=== PATIENT | male | born 1945 | race Caucasian/White ===

== ENCOUNTER 2021-03-03 08:23 | Emergency (ER) | payer MEDICARE, BC, SELFPAY ==
[2021-03-03] VITALS (12 sets, daily range): BP systolic 120–188; BP diastolic 62–96; PULSE 60–84; RESP 12–20; TEMP 36.6–37.7; O2SAT 95–100; BMI 26.4
--- NOTE | 2021-03-03 08:23 | ECG_ITS ---
APPROVED REPORT Exam: Resting ECG HR:69 bpm ECG Measurements Heart Rate 69 AXES [place] 150 P 58 QRSd 142 QRS -90 QT 438 T 33 QTc 469 Conclusion Normal sinus rhythm Left axis deviation Right bundle branch block Abnormal ECG Electronically signed by : Vince Brizuela MD 03/04/2021 09:13:07
--- NOTE | 2021-03-03 08:34 | XR_ITS ---
PROCEDURE: XR CHEST PORTABLE CLINICAL HISTORY: dyspnea COMPARISON: No exams were available for comparison FINDINGS: The cardiomediastinal silhouette and pulmonary vascularity are within normal limits. The lungs are clear without infiltrates, suspicious nodules, or pleural effusions. There is calcified granuloma in the right lower lobe. No acute bony findings. IMPRESSION: No acute findings. Dictated by: Jovani Ireland MD 03/03/2021 10:42 Jovani Ireland MD in [place] 03/03/2021 10:42
--- NOTE | 2021-03-03 08:34 | CT_ITS ---
PROCEDURE: CT ABDOMEN PELVIS W CON CLINICAL INDICATION: Sudden, severe L lumbar back pain COMPARISON: No exams were available for comparison TECHNIQUE: IV Contrast: 75ML Isovue 370 Oral Contrast None Axial images obtained with sagittal and coronal reformats. All CT scans at the facility use one or more dose reduction, viz: automated exposure control, ma/kV adjustment per patient size (including targeted exams where dose is matched to indication, i.e. head), or iterative reconstruction technique. FINDINGS: LOWER THORAX: There are mild atelectatic or fibrotic changes in the lower lobes posteriorly. Subpleural opacity is present in the left lung base laterally at 6 mm nonspecific. Coronary artery calcifications. ABDOMEN & PELVIS: The liver, spleen, adrenal glands, and pancreas have an unremarkable appearance. There are scattered clips in the right abdominal region. Small clip is noted anterior to the pancreas. No radiopaque gallstones evident. There is a 5 mm stone in the lower pole of the left kidney. 2 mm stone is present in the upper pole of the left kidney. There is mild left ureteral dilatation but no obstructing stone apparent. There is mild gastric distension partially fill within digested debris. Status post hemicolectomy on the right with what appears to represent and into site anastomosis of the small bowel. Fluid-filled loops of small bowel are present in the mid and distal ileal region with some enhancement of the mucosa with mild thickening of the small bowel in the right lower quadrant versus nondistention no evidence of diverticulitis. No pelvic mass or abnormal fluid collection. No acute bony findings. There is prominence of the transverse process at L5 with articulation with the sacrum. Small sclerotic foci are present in the pelvis may be due to bone islands. IMPRESSION: 1. Left nephrolithiasis. Mild left ureteral dilatation but no obvious obstructing stone. Recently passed stone would be a consideration. 2. Status post right hemicolectomy with an into site anastomosis of the small bowel with fluid-filled nondistended right colon with a few scattered air-fluid levels and some fluid-filled ilium. There is a small area of small-bowel wall thickening of the ileum in the right lower quadrant versus nondistention. Enterocolitis is a consideration. Please correlate clinically. Dictated by: Jovani Ireland MD 03/03/2021 10:13 Jovani Ireland MD in [facility] 03/03/2021 10:13
--- NOTE | 2021-03-03 08:58 | [facility].EDGENADL ---
ED Disposition Clinical Impression: Left nephrolithiasis Disposition: Home, Self-Care Condition on Discharge: Good Instructions: DI for Low Back Pain Additional Instructions: These continue supportive care at home including ibuprofen, Tylenol and drink plenty of fluids. If your condition worsens or any other concerns arise, please return to the emergency department for reassessment. Otherwise, please see your primary care doctor for follow-up as needed. Referrals: Osvaldo Flower [Primary Care Provider] - - Critical Care Critical Care Time: No Attestation: On 03/03/21, the high probability of a clinically significant, sudden or life threatening deterioration of the following system(s) required my full and direct attention, intervention and personal management. The time I documented below is in addition to time spent performing reported procedures but includes the following listed in this critical care notation. Medical Decision Making - Medical Records Medical records reviewed: Yes: I reviewed the patient's medical records. - Candelario Inquiry Pt receiving controlled substance: No Vital Signs: 03/03/21 08:37 03/03/21 09:18 03/03/21 09:30 Temperature 100 F H Temperature Source Oral Pulse Rate 73 67 Pulse Rate [Right Radial] 72 Respiratory Rate 20 19 14 Blood Pressure 147/69 H 139/69 Blood Pressure [Right Arm] 188/96 H Blood Pressure Mean 83 84 Blood Pressure Mean [Right Arm] 126 Blood Pressure Source [Right Arm] Automatic Cuff Blood Pressure Position [Right Arm] Supine 02 Sat by Pulse Oximetry 100 98 97 Oxygen Delivery Method Room Air 03/03/21 10:00 03/03/21 10:30 03/03/21 11:00 Temperature Temperature Source Pulse Rate 84 69 69 Pulse Rate [Right Radial] Respiratory Rate 13 18 16 Blood Pressure 151/76 H 154/82 H 156/70 H Blood Pressure [Right Arm] Blood Pressure Mean 94 94 98 Blood Pressure Mean [Right Arm] Blood Pressure Source [Right Arm] Blood Pressure Position [Right Arm] 02 Sat by Pulse Oximetry 99 98 95 Oxygen Delivery Method 03/03/21 11:30 03/03/21 12:30 Temperature Temperature Source Pulse Rate 72 66 Pulse Rate [Right Radial] Respiratory Rate 14 14 Blood Pressure 133/66 128/62 Blood Pressure [Right Arm] Blood Pressure Mean 88 94 Blood Pressure Mean [Right Arm] Blood Pressure Source [Right Arm] Blood Pressure Position [Right Arm] 02 Sat by Pulse Oximetry 97 97 Oxygen Delivery Method - Lab Data Lab Results 03/03/21 09:10: WBC 5.0, RBC 5.12, Hgb 15.8, Hct 49.9, MCV 97.5 H, MCH 30.9, MCHC 31.7 L, RDW 13.4, Plt Count 169, MPV 8.3, Neut % (Auto) 78.6, Lymph % (Auto) 11.8, [place] % (Auto) 5.2, Eos % (Auto) 3.9, Baso % (Auto) 0.5, Neut # (Auto) 3.9, Lymph # (Auto) 0.6 L, [place] # (Auto) 0.3, Eos # (Auto) 0.2, Baso # (Auto) 0.0 03/03/21 09:10: D-Dimer 0.61 H 03/03/21 09:10: Sodium 143, Potassium 4.2, Chloride 112 H, Carbon Dioxide 20 L, Anion Gap 15.2 H, BUN 15, Creatinine 0.70, Estimated Creat Clear 82, Estimated GFR 111, Est GFR ( Amer) 134, Glucose 243 H, Calcium 9.2, Total Bilirubin 0.4, AST 28, ALT 31, Alkaline Phosphatase 87, Troponin I < 0.01, Total Protein 6.3, Albumin 4.0, Globulin 2.3, Albumin/Globulin Ratio 1.7 03/03/21 10:32: Urine Color Yellow, Urine Appearance Clear, Urine pH 5.5, Ur Specific [place] 1.015, Urine Protein Negative, Urine Glucose (UA) 3+, Urine Ketones Trace, Urine Blood 3+, Urine Nitrate Negative, Urine Bilirubin Negative, Urine Urobilinogen 0.2, Ur Leukocyte Esterase Negative, Urine RBC 20-50, Urine WBC Occasional, Ur Squamous Epith Cells Occasional, Urine Bacteria 1+ 03/03/21 12:00: Troponin I < 0.01 Result diagrams: 03/03/21 09:10 03/03/21 09:10 Orders (Tests/Meds): ED MEDICATIONS Discontinued Medications Generic Name Dose Route Start Last Admin Trade Name Freq PRN Reason Stop Dose Admin Lactated Ringer's 1,000 mls @ 999 mls/hr 03/03/21 11:30 03/03/21 11:45 Lactated Ringer's
[2021-03-03 09:20] LABS: Basophils % 0.5 % (0.1-2.0); Eosinophils # 0.2 K/mm3 (0.0-0.4); Eosinophils % 3.9 % (0.1-12.0); Hematocrit 49.9 % (42.0-52.0); Hemoglobin 15.8 g/dL (14.1-18.0); Lymphocytes # 0.6 K/mm3 (0.7-4.5); Lymphocytes % 11.8 % (10-50); Mean Corpuscular HGB Conc 31.7 g/dL (31.8-35.4); Mean Corpuscular Hemoglobin 30.9 pg (27.0-31.2); Mean Corpuscular Volume 97.5 fl (80-94); Mean Platelet Volume 8.3 fl (7.4-10.4); Monocytes # 0.3 K/mm3 (0.1-1.0); Monocytes % 5.2 % (1.7-9.3); Neutrophils # 3.9 K/mm3 (1.8-7.8); Neutrophils % 78.6 % (37.0-80.0); Platelet Count 169 K/mm3 (142-424); Red Blood Count 5.12 M/mm3 (4.60-6.20); Red Cell Distribution Width 13.4 % (11.5-17.5)
[2021-03-03 09:24] LABS: Chloride 112 mmol/L (98-107); Potassium 4.2 mmoL/L (3.5-5.1); Sodium 143 mmol/L (136-145)
[2021-03-03 09:26] LABS: Blood Urea Nitrogen 15 mg/dl (9-20); Creatinine Clearance Estimated 82 mL/min (50-200); Estimated Glomerular Filt Rate 111 ml/min (>60); GFR (African American) 134 ML/MIN (>60)
[2021-03-03 09:27] LABS: Alanine Aminotransferase 31 U/L (12-78); Albumin/Globulin Ratio 1.7 (1.1-1.8); Alkaline Phosphatase 87 U/L (38-126); Anion Gap 15.2 mEq/L (5-15); Aspartate Amino Transferase 28 U/L (17-59); Bilirubin,Total 0.4 mg/dl (0.2-1.3); Calcium 9.2 mg/dl (8.4-10.2); Carbon Dioxide 20 mmol/L (22.0-30.0); Globulin 2.3 g/dL (1.3-3.2); Glucose 243 mg/dl (74-100); Total Protein,Serum 6.3 g/dl (6.3-8.2)
[2021-03-03 09:32] LABS: D-Dimer 0.61 ug/mL (0.0-0.5)
[2021-03-03 09:41] LABS: Troponin I < 0.01 ng/ml (0.00-0.034)
[2021-03-03 10:45] LABS: Microscopic, Urine URINE MICROSCOPIC (MICROSCOPIC)
--- NOTE | 2021-03-03 10:49 | PC.NURSE ---
Pt is resting comfortably in supine position with eyes closed. Will continue to monitor.
[2021-03-03 10:58] LABS: Appearance,Urine CLEAR (Clear); Bilirubin,Urine Negative (Negative); Blood, Urine 3+ (Negative); Color,Urine YELLOW (Yellow); Glucose,Urine (UA) 3+ (Negative); Ketones,Urine TRACE (Negative); Leukocyte Esterase,Urine Negative (Negative); Nitrate,Urine Negative (Negative); PH,Urine 5.5 (5.0-8.5); Protein,Urine Negative (Negative); Specific Gravity, Urine 1.015 (1.005-1.030); Urobilinogen,Urine 0.2 EU/dl (0.2)
[2021-03-03 11:01] LABS: Bacteria,Urine 1+ /lpf; RBC,Urine 20-50 #/hpf (0-3); Squamous Epithelial Cell,Urine Occasional #/hpf (0-5); WBC,Urine Occasional #/hpf (0-3)
[2021-03-03 12:48] LABS: Troponin I < 0.01 ng/ml (0.00-0.034)
--- NOTE | 2021-03-03 13:30 | PC.NURSE ---
Pt is resting in bed comfortably. Will continue to monitor.
== END 2021-03-03 14:32 | disposition home or self-care (01) ==
PROVIDERS: Emergency Provider Emergency Medicine; PCP Family Medicine
DX: N20.0 Calculus of kidney (principal); E10.65 Type 1 diabetes mellitus with hyperglycemia
CPT/HCPCS: 36415; 71045; 74177; 80053; 81001; 84484; 85025; 85378; 93005; 93041; 96365; 96375; 99284; J2405; Q9967

== ENCOUNTER 2021-04-01 20:49 | Emergency (ER) | payer MEDICARE, BC, SELFPAY ==
[2021-04-01 20:59] VITALS: BP 184/96; PULSE 85; RESP 18; TEMP 36.1; O2SAT 99; BMI 26.5
--- NOTE | 2021-04-01 21:08 | XR_ITS ---
PROCEDURE INFORMATION: Exam: XR Chest Exam date and time: 04/01/2021 9:08 PM Age: 75 years old Clinical indication: Injury or trauma; Fall; Blunt trauma (contusions or hematomas); Injury date: 04/01/2021; Injury details: [facility] protocols TECHNIQUE: Imaging protocol: XR of the chest. Views: 1 view. COMPARISON: CR XR CHEST PORTABLE 03/03/2021 9:50 AM FINDINGS: Lungs: Unremarkable. No consolidation. Pleural spaces: Unremarkable. No pleural effusion. No pneumothorax. Heart/Mediastinum: Unremarkable. No cardiomegaly. Bones/joints: Unremarkable. IMPRESSION: No acute findings.
--- NOTE | 2021-04-01 21:08 | CT_ITS ---
PROCEDURE INFORMATION: Exam: CT Head Without Contrast Exam date and time: 04/01/2021 9:08 PM Age: 75 years old Clinical indication: Injury or trauma; Fall; Blunt trauma (contusions or hematomas); Without loss of consciousness; Injury date: 04/01/2021; Injury details: Fell off step ladder and hit top of head , laceration and swelling at site TECHNIQUE: Imaging protocol: Computed tomography of the head without contrast. Total images: 292 Radiation optimization: All CT scans at this facility use at least one of these dose optimization techniques: automated exposure control; mA and/or kV adjustment per patient size (includes targeted exams where dose is matched to clinical indication); or iterative reconstruction. COMPARISON: No relevant prior studies available. FINDINGS: Brain: Moderate generalized atrophy. Minimal bilateral white matter hypodensities which are nonspecific but most commonly associated with chronic microvascular ischemia in this age group. No extra-axial fluid collections. Mild prominence of the peripheral CSF spaces, felt to be related to generalized atrophy. No evidence of acute intracranial hemorrhage. Moya-white differentiation is well maintained. No CT evidence of large territory acute or subacute intracranial ischemia/infarct. No intracranial mass lesions. No midline shift or herniation. Cerebral ventricles: Ventricles normal. Paranasal sinuses: Small mucous retention cyst or polyp in the inferomedial right frontal sinus suggesting mild chronic sinus inflammatory disease. No fluid levels. The other paranasal sinuses are clear. Mastoid air cells: Visualized mastoid air cells are clear. Orbital cavity: Visualized orbital contents demonstrate no acute abnormality. Vasculature: Mild-moderate calcific atherosclerosis. No asymmetric vascular hyperdensities suggestive of thrombosis are identified. Bones/joints: The calvarium and visualized facial bones are intact. Soft tissues: High midline occipital scalp soft tissue swelling with no underlying fracture or foreign body. Other findings: The IACs are grossly normal. The sella is grossly normal. IMPRESSION: 1. No acute intracranial process. No intracranial hemorrhage or mass effect. 2. High midline occipital scalp soft tissue swelling with no underlying fracture or foreign body. 3. Atrophy and chronic microvascular changes consistent with age. 4. Mild-moderate calcific atherosclerosis.
--- NOTE | 2021-04-01 21:08 | CT_ITS ---
PROCEDURE INFORMATION: Exam: CT Cervical Spine Without Contrast Exam date and time: 04/01/2021 9:08 PM Age: 75 years old Clinical indication: Injury or trauma; Fall; Blunt trauma; Injury date: 04/01/2021; Injury details: Fell off step ladder and hit top of head, laceration and swelling noted TECHNIQUE: Imaging protocol: Computed tomography images of the cervical spine without contrast. Total images: 616 Radiation optimization: All CT scans at this facility use at least one of these dose optimization techniques: automated exposure control; mA and/or kV adjustment per patient size (includes targeted exams where dose is matched to clinical indication); or iterative reconstruction. COMPARISON: CT HEAD/BRAIN WO CON 04/01/2021 9:47 PM FINDINGS: Bones/joints: Osteopenia. Craniocervical alignment is normal. The odontoid is intact. No cervical spine fractures are identified. There is slight superior endplate compression of T2 with no evidence of significant paraspinous edema or hematoma although cannot exclude mild acute compression injury. Straightening of cervical lordosis which may be positional or related to an element of muscular strain/spasm. 2 mm degenerative anterolisthesis C7-T1 and 1 mm degenerative anterolisthesis C4-C5. No blastic or lytic lesions. Discs/Spinal canal/Neural foramina: The occipital condyles are intact. Moderate-severe degenerative sclerosis and spurring at the atlantodens interval. No jumped or perched facets. Moderate right-sided facet hypertrophic change C2-C3 and C4-C5, with facet ankylosis at C3-C4. Moderate left-sided facet hypertrophic change C4-C5 and C7-T1. Moderate disc space narrowing with mild marginal spurring C5-C6 and C6-C7. Posterior uncovertebral spurring bilaterally C3-C4 and C4-C5 as well. No compressive soft disc protrusion or extrusion is evident by CT. Mild-moderate central canal stenosis at C3-C4 and C5-C6, with mild central canal stenosis at C4-C5 and C6-C7. There is left foraminal stenosis which is mild at C2-C3, moderate-severe at C3-C4, moderate C4-C5, moderate-severe at C5-C6, and moderate at C6-C7. There is right foraminal stenosis which is moderate-severe at C3-C4, mild at C4-C5, moderate-severe at C5-C6, and moderate-severe at C6-C7. Thyroid: The visualized thyroid gland is unremarkable. Lungs: Granulomatous calcifications in the posterior pulmonary apices bilaterally. Soft tissues: Paraspinous soft tissues are unremarkable without significant soft tissue swelling or soft tissue hematoma. IMPRESSION: 1. No evidence of fracture or acute traumatic subluxation. 2. Straightening of cervical lordosis which may be positional or related to an element of muscular strain/spasm. 3. Osteopenia and degenerative changes as detailed above with multilevel canal and foraminal stenosis.
--- NOTE | 2021-04-01 21:08 | XR_ITS ---
PROCEDURE INFORMATION: Exam: XR Pelvis Exam date and time: 04/01/2021 9:08 PM Age: 75 years old Clinical indication: Injury or trauma; Fall; Blunt trauma (contusions or hematomas); Bilateral; Pelvic region; Injury date: 04/01/2021; Injury details: Fell off step ladder trauma protocols TECHNIQUE: Imaging protocol: XR pelvis. Views: 1 or 2 view. COMPARISON: CT ABDOMEN PELVIS W CON 03/03/2021 9:39 AM FINDINGS: Bones/joints: Moderate degenerative changes of the hips. Mild degenerative change of the lower lumbar spine. No acute fracture. Soft tissues: Postsurgical changes right flank. No overlying soft tissue swelling. IMPRESSION: No acute findings.
--- NOTE | 2021-04-01 23:19 | [facility].EDFALL ---
ED Disposition Clinical Impression: Concussion without loss of consciousness Qualifiers: Encounter type: initial encounter Qualified Code(s): S06.0X0A - Concussion without loss of consciousness, initial encounter Acute cervical myofascial strain Qualifiers: Encounter type: initial encounter Qualified Code(s): S16.1XXA - Strain of muscle, fascia and tendon at neck level, initial encounter Abrasion of scalp Qualifiers: Encounter type: initial encounter Qualified Code(s): S00.01XA - Abrasion of scalp, initial encounter Disposition: Home, Self-Care Condition on Discharge: Good Instructions: DI for Concussion Additional Instructions: recheck if any problems Referrals: Osvaldo Flower [Primary Care Provider] - - Critical Care Critical Care Time: No Attestation: On 04/01/21, the high probability of a clinically significant, sudden or life threatening deterioration of the following system(s) required my full and direct attention, intervention and personal management. The time I documented below is in addition to time spent performing reported procedures but includes the following listed in this critical care notation. Medical Decision Making - Medical Records Medical records reviewed: Yes: I reviewed the patient's medical records. - Candelario Inquiry Pt receiving controlled substance: No Vital Signs: 04/01/21 20:59 Temperature 97.0 F L Temperature Source Oral Pulse Rate [Right Brachial] 85 Respiratory Rate 18 Blood Pressure [Right Arm] 184/96 H Blood Pressure Mean [Right Arm] 125 Blood Pressure Source [Right Arm] Automatic Cuff Blood Pressure Position [Right Arm] Sitting 02 Sat by Pulse Oximetry 99 Oxygen Delivery Method Room Air - Radiology Data #1 Image(s): Chest, Pelvis Image Reviewed: Yes I have reviewed radiologist's interpretation Preliminary Findings: No Fracture Seen - CT Data CT Scan: Head, C-Spine Time Received: 23:[address] Reviewed: Yes: I have viewed the radiologist's interpretation Preliminary Findings: Abnormal (see report), No Fracture Seen Medical Decision Narrative: has fall but no fx and stable exam - Fall HPI - General Chief Complaint: Fall Stated Complaint: AO 04/01@2030 hit head lac Time Seen by Provider: 04/01/21 21:30 Mode of Arrival: Family Vehicle Source of Information: Patient, Medical Record Limitations: No Limitations Description of Symptoms (Recalled from ER Triage Doc. by RN): pt states he was in the process of spraying peppermint extract in his vents on his porch (to deter mice) when the 2 step stepladder he was on folded up on him and caused him to fall. pt complains that he landed on his head, and that his head and neck are sore, but otherwise feels ok. pt further denies LOC. slight nausea upon arrival to hospital. no visual changes, no weakness/tingling/alteration in sensation. no loss of bowel or bladder noted. pt admits to being on aspirin but denies other anticoags/antiplatelets. - History of Present Illness HPI Narrative: fell off ladder and hit head w/o loc - has neck pain and no neuro sx MD complaint: fall Onset (ago): hour(s) Fall from: from height (distance) (2 foot) Fall witnessed: no Place fall occurred: home Loss of consciousness: none Prolonged down time: no Symptoms prior to fall: none Context: tripped/slipped Location of injury: head, neck Severity: moderate Associated symptoms (after fall): denies - Related Data Home Medications Medication Instructions Recorded Confirmed Aspirin [Aspirin 81mg chewable 81 mg PO DAILY 04/01/21 04/01/21 tab] Cinnamon Bark/Chromium Picolin 1 each PO DAILY 04/01/21 04/01/21 [Cinnamon Plus Chromium Capsule] Glimepiride 4 mg PO BID 04/01/21 04/01/21 Lansoprazole 30 mg PO DAILY 04/01/21 04/01/21 Linagliptin [Tradjenta 5mg tablet] 5 mg PO DAILY 04/01/21 04/01/21 Metformin HCl [Metformin 1000mg 1,000 mg PO BID 04/01/21 04/01/21 Tablets] Pioglitazone HCl 30 mg PO DAILY 04/01/21
[2021-04-01 23:30] VITALS: BP 174/89; PULSE 79; RESP 17; TEMP 36.8; O2SAT 98
== END 2021-04-01 23:57 | disposition home or self-care (01) ==
PROVIDERS: Emergency Provider Emergency Medicine; PCP Family Medicine
DX: S06.0X0A Concussion without loss of consciousness, initial encounter (principal); S16.1XXA Strain of muscle, fascia and tendon at neck level, initial encounter; W01.0XXA Fall on same level from slipping, tripping and stumbling without subsequent striking against object, initial encounter; E10.9 Type 1 diabetes mellitus without complications
CPT/HCPCS: 70450; 71045; 72125; 72170; 99282

== ENCOUNTER 2023-01-26 06:35 | Emergency (ER) | payer MEDICARE, BC, SELFPAY ==
[2023-01-26 06:36] VITALS: BP 166/88; PULSE 74; RESP 16; TEMP 36.6; O2SAT 99; BMI 24.4
--- NOTE | 2023-01-26 06:49 | CT_ITS ---
PROCEDURE INFORMATION: Exam: CT Abdomen And Pelvis With Contrast Exam date and time: 01/26/2023 7:32 AM Age: 77 years old Clinical indication: Abdominal pain; Generalized; Additional info: Generalized abd pain, nausea, right flank pain, TECHNIQUE: Imaging protocol: Computed tomography of the abdomen and pelvis with contrast. Radiation optimization: All CT scans at this facility use at least one of these dose optimization techniques: automated exposure control; mA and/or kV adjustment per patient size (includes targeted exams where dose is matched to clinical indication); or iterative reconstruction. Contrast material: ISOVUE 370; Contrast volume: 75 ml; Contrast route: IV; REPORTING DATA: Count of CT and Cardiac NM exams in prior 12 months: This patient has received 0 known CTs and 0 known cardiac nuclear medicine studies in the 12 months prior to the current study. COMPARISON: CT ABDOMEN PELVIS W CON 03/03/2021 9:39 AM FINDINGS: Inferior thorax: Interstitial prominence , chronic granulomatous disease, and mild airspace disease. Small hiatal hernia. Liver: Fatty infiltration of the liver. Gallbladder and bile ducts: Unremarkable gallbladder. Pancreas: No pancreatic mass or ductal dilatation. Spleen: No splenomegaly. Adrenal glands: Unremarkable adrenals. Kidneys and ureters: Mild right hydronephrosis in association with a 1 mm right UVJ calculus. Nonobstructing bilateral renal calculi, including a 10 mm left renal calculus. Mild bilateral infiltration of perinephric fat. Stomach and bowel: Gastric wall thickening. Combined small bowel and colonic dilatation, along with bowel wall thickening. Prominent stool. Mild small bowel Appendix: Status post appendectomy. Intraperitoneal space: No significant intraperitoneal fluid. Vasculature: Vascular calcification. Normal caliber of the abdominal aorta. Lymph nodes: Subcentimeter lymph nodes. Urinary bladder: Mild circumferential bladder wall thickening. Reproductive: Unremarkable. Bones/joints: Degenerative change and disc bulging. Schmorl's nodes. Soft tissues: Small umbilical hernia. IMPRESSION: 1. Mild right hydronephrosis in association with a 1 mm right UVJ calculus. 2. Nonobstructing bilateral renal calculi, including a 10 mm left renal calculus. 3. Gastric wall thickening. 4. Additional findings as described above.
--- NOTE | 2023-01-26 06:51 | HMH.EDGENADL ---
Discharge Plan Disposition Patient Disposition: Home, Self-Care Condition: Good Prescriptions Prescriptions: New ketorolac 10 mg tablet 10 mg PO Q8H PRN (Reason: pain) 10 Days Qty: 20 0RF tamsulosin 0.4 mg capsule 0.4 mg PO HS Qty: 20 0RF No Action aspirin 81 MG tablet,chewable 81 mg PO DAILY simvastatin 20 MG tablet 20 mg PO DAILY metformin 1,000 MG tablet 1,000 mg PO BID glimepiride 4 MG tablet 4 mg PO BID lisinopril 5 MG tablet 5 mg PO DAILY linagliptin 5 MG tablet 5 mg PO DAILY lansoprazole 30 MG capsule,delayed release(DR/EC) 30 mg PO DAILY pioglitazone 30 MG tablet 30 mg PO DAILY cinnamon bark-chromium picolin 1 EACH capsule 1 each PO DAILY Referrals Follow up/Referrals: Osvaldo Flower [Primary Care Provider] - See instructions Activity Restrictions/Add. Instructions Additional Instructions/Restrictions: Please follow-up with your primary care doctor for recheck of your kidney function as it appears a component of hydration has bumped your creatinine. Please return with any new or worsening symptoms. Clinical Impressions Clinical Impression: Urolithiasis Qualifiers: Urinary calculus location: kidney and ureter Qualified Code(s): N20.2 - Calculus of kidney with calculus of ureter Instructions Patient Instructions: DI for Acute Abdominal Pain Discharge ED Provider: Nathan Parker General Adult HPI <Sabino Cottrell MD - Last Filed: 01/26/23 06:55> General Chief complaint: Abdominal Pain Stated complaint: ? Kidney Stones Time Seen by Provider: 01/26/23 06:49 Mode of Arrival: Wheelchair Source of Information: Patient Limitations: No Limitations Description of Symptoms (Recalled from ER Triage Doc. by RN): pt c/o rt flank pain that started last night @ 7pm. History of Present Illness HPI narrative: 77-year-old male history of prior colon cancer status post resection 20 years ago, history of 1 prior episode of renal lithiasis presents with generalized abdominal pain starting yesterday that has now migrated to the right flank with associated nausea without vomiting. Patient reports no fevers. He thinks he has a kidney stone. He has not urinated since onset of pain. Related Data Home Medications Medication Instructions Recorded Confirmed aspirin 81 mg chewable tablet 81 mg PO DAILY antiplatelet 04/01/21 04/01/21 cinnamon bark-chromium picolinate 1 each PO DAILY Supplement 04/01/21 04/01/21 500 mg-100 mcg capsule glimepiride 4 mg tablet 4 mg PO BID diabetes mellitus 04/01/21 04/01/21 lansoprazole 30 mg capsule,delayed 30 mg PO DAILY ppi 04/01/21 04/01/21 release linagliptin 5 mg tablet 5 mg PO DAILY Diabetes 04/01/21 04/01/21 lisinopril 5 mg tablet 5 mg PO DAILY htn 04/01/21 04/01/21 metformin 1,000 mg tablet 1,000 mg PO BID Diabetes 04/01/21 04/01/21 pioglitazone 30 mg tablet 30 mg PO DAILY Diabetes 04/01/21 04/01/21 simvastatin 20 mg tablet 20 mg PO DAILY Cholesterol 04/01/21 04/01/21 Previous Rx's Medication Instructions Recorded ketorolac 10 mg tablet 10 mg PO Q8H PRN pain 10 days #20 01/26/23 tabs tamsulosin 0.4 mg capsule 0.4 mg PO HS #20 caps 01/26/23 Allergies Allergy/AdvReac Type Severity Reaction Status Date / Time No Known Allergies Allergy Verified 03/03/21 09:01 [facility] <Sabino Cottrell MD - Last Filed: 01/26/23 06:55> [facility] Disclaimer: The information contained in this section may have been updated after the patient was seen, as this information can be updated by other users. Social History (Updated 01/26/23 @ 06:55 by Sabino Cottrell MD) Smoking Status: Never smoker alcohol intake: never current occupational status: other Travel in the last 8 weeks: None <Sabino Cottrell MD - Last Filed: 01/26/23 06:55> ROS Obtained: Yes All systems reviewed & no additional complaints except as documented Physical Exam <Sabino Cottrell MD - Last Filed: 01/26/23 06:55> General General azar
[2023-01-26 07:05] LABS: Basophils % 0.2 % (0.1-2.0); Eosinophils # 0.1 K/mm3 (0.0-0.4); Hematocrit 49.3 % (42.0-52.0); Hemoglobin 15.8 g/dL (14.1-18.0); Lymphocytes # 0.6 K/mm3 (0.7-4.5); Lymphocytes % 5.3 % (10-50); Mean Corpuscular HGB Conc 32.1 g/dL (31.8-35.4); Mean Corpuscular Hemoglobin 29.7 pg (27.0-31.2); Mean Corpuscular Volume 92.7 fl (80-94); Mean Platelet Volume 8.5 fl (7.4-10.4); Monocytes # 0.6 K/mm3 (0.1-1.0); Monocytes % 5.3 % (1.7-9.3); Neutrophils # 9.3 K/mm3 (1.8-7.8); Neutrophils % 88.1 % (37.0-80.0); Platelet Count 194 K/mm3 (142-424); Red Blood Count 5.32 M/mm3 (4.60-6.20); Red Cell Distribution Width 13.6 % (11.5-17.5); White Blood Count 10.5 K/mm3 (4.8-10.8)
[2023-01-26 07:09] LABS: MANUAL DIFFERENTIAL MANUAL DIFFERENTIAL (MANUAL DIFF)
[2023-01-26 07:14] LABS: Lipase 191 U/L (23-300)
[2023-01-26 07:15] LABS: Alanine Aminotransferase 25 U/L (12-78); Albumin Level 4.7 g/dl (3.5-5.0); Albumin/Globulin Ratio 1.6 (1.1-1.8); Alkaline Phosphatase 115 U/L (38-126); Anion Gap 20.3 mEq/L (5-15); Aspartate Amino Transferase 28 U/L (17-59); Bilirubin,Total 0.7 mg/dl (0.2-1.3); Blood Urea Nitrogen 30 mg/dl (9-20); Calcium 9.5 mg/dl (8.4-10.2); Carbon Dioxide 17 mmol/L (22.0-30.0); Chloride 107 mmol/L (98-107); Creatinine Clearance Estimated 57 mL/min (50-200); Estimated Glomerular Filt Rate 54 ml/min (>60); GFR (African American) 65 ML/MIN (>60); Glucose 186 mg/dl (74-100); Potassium 4.3 mmoL/L (3.5-5.1); Sodium 140 mmol/L (136-145); Total Protein,Serum 7.7 g/dl (6.3-8.2)
[2023-01-26 07:30] LABS: Lymphocytes % 8 % (10-50); Monocytes % 4 % (2-9); Neutrophils % 88 % (42-76); Platelet Estimate Normal; RBC Morphology Normal; Total Cells Counted 100
[2023-01-26 09:02] VITALS: BP 111/57; PULSE 74; RESP 16; TEMP 36.7
== END 2023-01-26 09:02 | disposition home or self-care (01) ==
PROVIDERS: Emergency Medicine; Emergency Provider Emergency Medicine; PCP Family Medicine
DX: N20.2 Calculus of kidney with calculus of ureter (principal); Z85.038 Personal history of other malignant neoplasm of large intestine; R10.84 Generalized abdominal pain
CPT/HCPCS: 74177; 80053; 83690; 85007; 85025; 96361; 96374; 96375; 99285; J2405; Q9967

== ENCOUNTER 2024-03-09 09:30 | Emergency (ER) | payer MEDICARE, BC, SELFPAY ==
[2024-03-09 09:31] VITALS: BP 149/83; PULSE 76; RESP 18; O2SAT 97; BMI 25.7
[2024-03-09 09:40] VITALS: BP 149/83; PULSE 73; O2SAT 98
--- NOTE | 2024-03-09 09:46 | PC.NURSE ---
Dr. Massey at bedside for pt eval
--- NOTE | 2024-03-09 09:51 | CT_ITS ---
PROCEDURE INFORMATION: Exam: CT Abdomen And Pelvis With Contrast Exam date and time: 03/09/2024 10:45 AM Age: 78 years old Clinical indication: Abdominal pain; Flank; Left; Additional info: Left flank pain TECHNIQUE: Imaging protocol: Computed tomography of the abdomen and pelvis with contrast. Radiation optimization: All CT scans at this facility use at least one of these dose optimization techniques: automated exposure control; mA and/or kV adjustment per patient size (includes targeted exams where dose is matched to clinical indication); or iterative reconstruction. Contrast material: ISOVUE; Contrast volume: 75 ml; Contrast route: IV; COMPARISON: CT ABDOMEN PELVIS W CON 01/26/2023 7:32 AM FINDINGS: Lungs: There is an old calcified granuloma of the right lung base. Liver: Hepatic steatosis. No focal liver lesion is identified. Gallbladder and biliary ducts: The gallbladder is unremarkable with no calcified stones visualized and no strandy inflammatory changes surrounding the gallbladder. Pancreas: The pancreas is normal in appearance. No evidence of pancreatic ductal dilatation. Spleen: The spleen is normal in appearance. Adrenal glands: Normal. No mass. Kidneys and ureters: There is mild left hydronephrosis and left hydroureter secondary to a 3 mm obstructing calculus in the mid left ureter. There are multiple other nonobstructing calculi in the calices of the left kidney measuring up to 7-8 mm. There is also a 2 mm nonobstructing calculus in a lower pole calyx of the right kidney. Stomach and bowel: The small bowel loops are not thickened and are nondilated. The colon is unremarkable. Appendix: Appendectomy. Intraperitoneal space: Unremarkable. No free air. No significant fluid collection. Vasculature: Unremarkable. No abdominal aortic aneurysm. Lymph nodes: Unremarkable. No enlarged lymph nodes. Urinary bladder: The urinary bladder is normal in appearance. Reproductive: Unremarkable as visualized. Bones/joints: No acute osseous lesions. There are multilevel chronic degenerative changes throughout the lower lumbar spine. Soft tissues: Unremarkable. IMPRESSION: 1. Mild left hydronephrosis and mild left hydroureter secondary to a 3 mm calculus in the mid left ureter. 2. Hepatic steatosis.
--- NOTE | 2024-03-09 09:57 | ED_ITS ---
Discharge Plan Disposition Patient Disposition: Home, Self-Care Condition: Good Prescriptions Prescriptions: New ketorolac 10 mg tablet 10 mg PO DAILY 5 Days Qty: 5 0RF tamsulosin 0.4 mg capsule 0.4 mg PO DAILY Qty: 10 0RF No Action aspirin 81 MG tablet,chewable 81 mg PO DAILY simvastatin 20 MG tablet 20 mg PO DAILY metformin 1,000 MG tablet 1,000 mg PO BID glimepiride 4 MG tablet 4 mg PO BID lisinopril 5 MG tablet 5 mg PO DAILY linagliptin 5 MG tablet 5 mg PO DAILY lansoprazole 30 MG capsule,delayed release(DR/EC) 30 mg PO DAILY pioglitazone 30 MG tablet 30 mg PO DAILY cinnamon bark-chromium picolin 1 EACH capsule 1 each PO DAILY ketorolac 10 mg tablet 10 mg PO Q8H PRN (Reason: pain) 10 Days Qty: 20 0RF tamsulosin 0.4 mg capsule 0.4 mg PO HS Qty: 20 0RF Referrals Follow up/Referrals: Osvaldo Flower [Primary Care Provider] - See instructions Jimmy Cheema MD [Staff Physician] - See instructions Activity Restrictions/Add. Instructions Additional Instructions/Restrictions: As discussed please take medications as prescribed, return to ED if symptoms worsen. Please follow-up with urology as well as your primary care provider. Clinical Impressions Clinical Impression: Left nephrolithiasis Print Language Print Language: Hungarian Discharge ED Provider: Horacio Massey General Adult HPI General Chief complaint: PAIN Stated complaint: kidney stones Time Seen by Provider: 03/09/24 09:44 Mode of Arrival: Ambulatory Source of Information: Patient Limitations: No Limitations Description of Symptoms (Recalled from ER Triage Doc. by RN): c/o left flank pain with a history of kidney stones. History of Present Illness HPI narrative: 78 yoM patient presents with a chief complaint of sudden onset left flank, which started approximately 45 minutes prior to the visit. The pain is described as located right above the kidney. The patient has a history of kidney stones and has been seen in the emergency department twice before for this issue. The current pain is reported to be different from previous episodes, as it is not wrapping around the body. There is also a history of partial colectomy, caused by the removal tumor 24 years ago. The patient is in remission and has not had any issues related to the tumor since then. The patient denies any chest pain, shortness of breath, fever, or blood in the urine. There is no pain during urination. Bowel movements are reported to be mostly diarrhea which is baseline. The patient does not currently follow with a urologist for the kidney stones. Please note that above description of symptoms, in this electronic medical record under categorization of recalled from ER triage doctor by RN are reflective of an initial nursing assessment, however, is not reflective of my full history and physical exam that was personally taken and clarified. Consequentially, this preceding description of symptoms, which may include the patient's categorized chief complaint in the EMR, do not reflect my personal clinical impression, and the ultimate description of history of present illness and patient stated complaints should be deferred to this section of the note. Unless stated otherwise or congruent with this section of the note, additional signs, symptoms, or incongruence should be interpreted as inaccurate with my clinical impression. Related Data Home Medications ?Medication ?Instructions ?Recorded ?Confirmed aspirin 81 mg chewable tablet 81 mg PO DAILY antiplatelet 04/01/21 04/01/21 cinnamon bark-chromium picolinate 1 each PO DAILY Supplement 04/01/21 04/01/21 500 mg-100 mcg capsule glimepiride 4 mg tablet 4 mg PO BID diabetes mellitus 04/01/21 04/01/21 lansoprazole 30 mg capsule,delayed 30 mg PO DAILY ppi 04/01/21 04/01/21 release linagliptin 5 mg tablet 5 mg PO DAILY Diabetes 04/01/21 04/01/21 lisinopril 5 mg tablet 5 mg PO DAILY htn 04/01/21 04/01/21 metformin 1,000 mg tablet 1,000 mg PO BID Diabetes 04/01/21 04/01/21 pioglitazone 30 mg tablet 30 mg PO DAILY Diabetes 04/01/21 04/01/21 simvastatin 20 mg tablet 20 mg PO DAILY Cholesterol 04/01/21 04/01/21 Previous Rx's ?Medication ?Instructions ?Recorded ketorolac 10 mg tablet 10 mg PO Q8H PRN pain 10 days #20 01/26/23 tabs tamsulosin 0.4 mg capsule 0.4 mg PO HS #20 caps 01/26/23 ketorolac 10 mg tablet 10 mg PO DAILY 5 days #5 tabs 03/09/24 tamsulosin 0.4 mg capsule 0.4 mg PO DAILY #10 caps 03/09/24 Allergies Allergy/AdvReac Type Severity Reaction Status Date / Time No Known Allergies Allergy Verified 03/03/21 09:[address] [facility] Disclaimer: The information contained in this section may have been updated after the patient was seen, as this information can be updated by other users. Social History (Updated 01/26/23 @ 06:55 by Sabino Cottrell MD) Smoking Status: Never smoker alcohol intake: never current occupational status: other Travel in the last 8 weeks: None Other Medical History Have you received the Flu Vaccine for this season: No Have you received the Pneumonia Vaccine: No ROS Obtained: Yes Systems reviewed as appropriate & no additional complaints except as documented Physical Exam General General appearance: alert and in no apparent distress Head Head exam: atraumatic and normocephalic Eye Eye exam: Present normal appearance and EOMI ENT ENT exam: Present normal exam Neck Neck exam: Present normal inspection Chest Chest inspection: Present normal inspection and symmetric chest wall rise Respiratory Respiratory exam: Present normal lung sounds bilaterally Cardiovascular Cardiovascular exam: Present regular rate, normal rhythm and normal heart sounds Abdominal Exam Abdominal exam: Present soft and normal bowel sounds; Absent distention, tenderness, guarding, rebound or rigidity exam: Present deferred Extremities Exam Extremities exam: Present normal inspection and full ROM; Absent tenderness Back Exam Back exam: Present normal inspection and CVA tenderness (L); Absent CVA tenderness (R) Neurological Exam Neurological exam: Present alert and oriented X3 Psychiatric Psychiatric exam: Present normal affect and normal mood Skin Skin exam: Present warm, dry, intact and normal color; Absent rash Medical Decision Making Medical Records Medical records reviewed: Yes I reviewed the patient's medical records. Screening: Per USPSTF and CDC recommendations, given the prevalence of disease in our region, it is our hospital?s policy to screen for HIV and viral Hepatitis for all patients aged 18 and over and those with ongoing risk factors. Candelario Inquiry Pt receiving controlled substance: No Candelario was queried for this patient: No Vital Signs: 03/09/24 09:31 03/09/24 09:40 03/09/24 10:01 Pulse Rate 73 84 Pulse Rate [Left Radial] 76 Respiratory Rate 18 Blood Pressure 149/83 H 91/53 L Blood Pressure [Right Arm] 149/83 H Blood Pressure Mean [Right Arm] 105 Blood Pressure Source [Right Arm] Automatic Cuff Blood Pressure Position [Right Arm] Sitting 02 Sat by Pulse Oximetry 97 98 99 Oxygen Delivery Method Room Air Room Air Room Air Lab Data Lab Results 03/09/24 09:53: WBC 4.8, RBC 5.54, Hgb 16.7, Hct 50.0, MCV 90.4, MCH 30.1, MCHC 33.3, RDW 13.8, Plt Count 187, MPV 7.8, Neut % (Auto) 67.5, Lymph % (Auto) 20.7, Mcminn % (Auto) 6.8, Eos % (Auto) 4.4, Baso % (Auto) 0.6, Neut # (Auto) 3.2, Lymph # (Auto) 1.0, Mcminn # (Auto) 0.3, Eos # (Auto) 0.2, Baso # (Auto) 0.0, Sodium 142, Potassium 4.5, Chloride 106, Carbon Dioxide 23, Anion Gap 17.5 H, BUN 19, Creatinine 1.10, Estimated Creat Clear 70, Estimated GFR 65, Est GFR ( Amer) 79, Glucose 213 H, Calcium 9.6, Total Bilirubin 0.9, AST 32, ALT 29, Alkaline Phosphatase 95, Total Protein 7.8, Albumin 4.7, Globulin 3.1, Albumin/Globulin Ratio 1.5 03/09/24 10:12: Urine Color Yellow, Urine Appearance Clear, Urine pH 5.5, Ur Specific [place] >= 1.030, Urine Protein Trace, Urine Glucose (UA) 2+, Urine Ketones Trace, Urine Blood 3+ A, Urine Nitrate Negative, Urine Bilirubin Negative, Urine Urobilinogen 0.2, Ur Leukocyte Esterase Negative, Urine RBC 50- 100, Urine WBC Occasional, Ur Squamous Epith Cells Occasional, Urine Bacteria Trace 03/09/24 09:53 03/09/24 09:53 Orders (Tests/Meds): ED MEDICATIONS Discontinued Medications Generic Name Dose Route Start Last Admin Trade Name Freq PRN Reason Stop Dose Admin Iopamidol 75 ml 03/09/24 10:44 03/09/24 10:45 Iopamidol-370 (76%);100ml Bottle IV 03/09/24 10:45 75 ml ONCE ONE Administration Ketorolac Tromethamine 15 mg 03/09/24 09:51 03/09/24 10:17 Ketorolac 30mg/Ml Vial IV 03/09/24 09:52 15 mg ONCE ONE Administration Ondansetron HCl 4 mg 03/09/24 10:20 03/09/24 10:21 Ondansetron 4mg/2ml Vial IV 03/09/24 10:21 4 mg ONCE ONE Administration Sodium Chloride 10 ml 03/09/24 10:44 03/09/24 10:45 Sodium Chloride 0.9% 10ml Syr (Rad Only) IV 03/09/24 10:45 10 ml ONCE ONE Administration ORDERS Category Date Time Status CT abdomen pelvis w con Stat Cat Scan 03/09/24 09:51 Completed CBC w/Auto Diff [Complete Blood Count Auto Diff] Stat Lab 03/09/24 09:53 Completed CMP [Comprehensive Metabolic Panel] Stat Lab 03/09/24 09:53 Completed HIV (1&2) Antibody Rapid Stat Lab 03/09/24 09:53 Received Hep C Ab with Reflex to RNA Stat Lab 03/09/24 09:53 Received Urinalysis and Microscopic Stat Lab 03/09/24 10:12 Completed Urine Culture Stat Micro 03/09/24 10:12 Received Medical Decision Narrative: Patient with history and exam per above presenting for evaluation of left-sided flank pain Diagnoses considered include nephrolithiasis, pyelonephritis, UTI, electrolyte abnormality ED workup and treatment included: As above Labs were independently interpreted by me, significant for no noted UTI, hematuria. No acute electrolyte abnormalities, mildly elevated glucose, anion gap 17.5. No leukocytosis, no anemia. Laboratory workup grossly nonactionable Imaging was independently visualized and interpreted by me, significant for CT abdomen pelvis with left-sided hydronephrosis, left hydroureter, both are mild. Patient has 3 mm kidney stone in left ureter. Will be it will pass. Nonobstructing 7 to 8 mm kidney stones noted in the left kidney. Please refer to radiology report for full details. My clinical impression at this time is most consistent with Nephrolithiasis, hematuria prescribing Toradol 10 mg p.o. daily, tamsulosin 0.4 mg p.o. nightly x 20 tabs. Referring to urology. Patient given strict instructions to return to ED if symptoms worsen patient agreeable with this plan. Otherwise patient to follow-up with PCP and neurology I discussed my clinical impression with patient and answered all questions. At this time, the evidence for any other entities in the differential is insufficient to warrant any further testing or ED observation. This was explained to the patient. The patient was advised that persistent or worsening symptoms require further evaluation. Critical Care Critical Care Time Critical Care Time: No
[2024-03-09 10:01] VITALS: BP 91/53; PULSE 84; O2SAT 99
--- NOTE | 2024-03-09 10:10 | PC.NURSE ---
PT ASSISTED TO BR
[2024-03-09 10:11] LABS: Basophils % 0.6 % (0.1-2.0); Eosinophils # 0.2 K/mm3 (0.0-0.4); Eosinophils % 4.4 % (0.1-12.0); Hemoglobin 16.7 g/dL (14.1-18.0); Lymphocytes % 20.7 % (10-50); Mean Corpuscular HGB Conc 33.3 g/dL (31.8-35.4); Mean Corpuscular Hemoglobin 30.1 pg (27.0-31.2); Mean Corpuscular Volume 90.4 fl (80-94); Mean Platelet Volume 7.8 fl (7.4-10.4); Monocytes # 0.3 K/mm3 (0.1-1.0); Monocytes % 6.8 % (1.7-9.3); Neutrophils # 3.2 K/mm3 (1.8-7.8); Neutrophils % 67.5 % (37.0-80.0); Platelet Count 187 K/mm3 (142-424); Red Blood Count 5.54 M/mm3 (4.60-6.20); Red Cell Distribution Width 13.8 % (11.5-17.5); White Blood Count 4.8 K/mm3 (4.8-10.8)
[2024-03-09] MEDS: KETOROLAC 30MG/ML VIAL 15 MG IV (10:17)
[2024-03-09 10:20] LABS: Microscopic, Urine URINE MICROSCOPIC (MICROSCOPIC)
[2024-03-09] MEDS: ONDANSETRON 4MG/2ML VIAL 4 MG IV (10:21)
[2024-03-09 10:31] LABS: Albumin Level 4.7 g/dl (3.5-5.0); Chloride 106 mmol/L (98-107); Potassium 4.5 mmoL/L (3.5-5.1); Sodium 142 mmol/L (136-145)
[2024-03-09 10:32] LABS: Appearance,Urine CLEAR (Clear); Bilirubin,Urine Negative (Negative); Blood, Urine 3+ (Negative); Color,Urine YELLOW (Yellow); Glucose,Urine (UA) 2+ (Negative); Ketones,Urine TRACE (Negative); Leukocyte Esterase,Urine Negative (Negative); Nitrate,Urine Negative (Negative); PH,Urine 5.5 (5.0-8.5); Protein,Urine TRACE (Negative); Specific Gravity, Urine >= 1.030 (1.005-1.030); Urobilinogen,Urine 0.2 EU/dl (0.2)
[2024-03-09 10:34] LABS: Alanine Aminotransferase 29 U/L (12-78); Albumin/Globulin Ratio 1.5 (1.1-1.8); Alkaline Phosphatase 95 U/L (38-126); Anion Gap 17.5 mEq/L (5-15); Aspartate Amino Transferase 32 U/L (17-59); Bilirubin,Total 0.9 mg/dl (0.2-1.3); Blood Urea Nitrogen 19 mg/dl (9-20); Carbon Dioxide 23 mmol/L (22.0-30.0); Creatinine Clearance Estimated 70 mL/min (50-200); Estimated Glomerular Filt Rate 65 ml/min (>60); GFR (African American) 79 ML/MIN (>60); Globulin 3.1 g/dL (1.3-3.2); Total Protein,Serum 7.8 g/dl (6.3-8.2)
[2024-03-09 10:35] LABS: Calcium 9.6 mg/dl (8.4-10.2); Glucose 213 mg/dl (74-100)
--- NOTE | 2024-03-09 10:39 | PC.NURSE ---
Pt out of room with Rad for CT
--- NOTE | 2024-03-09 10:41 | PC.NURSE ---
PT TO CT
[2024-03-09] MEDS: IOPAMIDOL-370 (76%);100ML BOTTLE 75 ML IV (10:45)
[2024-03-09] MEDS: SODIUM CHLORIDE 0.9% 10ML SYR (RAD ONLY) 10 ML IV (10:45)
[2024-03-09 10:55] LABS: Bacteria,Urine Trace /lpf; RBC,Urine 50-100 #/hpf (0-3); Squamous Epithelial Cell,Urine Occasional #/hpf (0-5); WBC,Urine Occasional #/hpf (0-3)
--- NOTE | 2024-03-09 12:15 | PC.NURSE ---
DR CALDERA AT BEDSIDE TO UPDATE PT AND FAMILY
[2024-03-09 12:30] VITALS: BP 138/80; PULSE 74; RESP 18; TEMP 36.6; O2SAT 98
[2024-03-09 14:17] LABS: HIV (1&2) Antibody Rapid NONREACTIVE (NONREACTIVE)
[2024-03-10 09:38] LABS: HCV Ab Non Reactive (Non Reactive)
== END 2024-03-09 12:30 | disposition home or self-care (01) ==
PROVIDERS: Emergency Provider Student in an Organized Health Care Education/Training Program; PCP Family Medicine
DX: N20.0 Calculus of kidney (principal); R10.32 Left lower quadrant pain; R19.7 Diarrhea, unspecified
CPT/HCPCS: 74177; 80053; 81001; 85025; 86803; 87086; 87389; 96374; 96375; 99285; J1885; J2405; Q9967